=== PATIENT | male | born 1960 ===

== ENCOUNTER 2017-02-10 19:40 | Emergency (ER) | payer OTHER, BC ==
[2017-02-10 19:48] VITALS: RESP 18; TEMP 98.2
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
[2017-02-10 20:08] VITALS: O2SAT 98
[2017-02-10 21:14] VITALS: BP 145/79; PULSE 94
[2017-02-10] MEDS ORDERED: Amoxicillin-Clav 875-125 mg Tab PO STA (21:33)
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
== END 2017-02-10 22:14 | disposition home or self-care (01) ==
LOC: ED 19:40
DX: R51 Headache (principal); M54.2 Cervicalgia; M54.9 Dorsalgia, unspecified; V49.49XA Driver injured in collision with other motor vehicles in traffic accident, initial encounter; Y92.411 Interstate highway as the place of occurrence of the external cause; J32.9 Chronic sinusitis, unspecified; N28.1 Cyst of kidney, acquired
CPT/HCPCS: 70450; 72125; 72128; 96372; 99285; J1885

== ENCOUNTER 2018-05-03 08:30 | Day surgery (SDC) | payer BC, OTHER ==
[~2018-05-03 08:30] MED LIST: Lactated Ringer's 1,000 ML IV SCH
[2018-05-03] MEDS ORDERED: Propofol 10 mg/ml Inj (20 ML) ONE (09:44)
[2018-05-03 11:37] VITALS: BP 134/80; PULSE 63; RESP 16; TEMP 98.2; O2SAT 99
== END 2018-05-03 12:25 | disposition home or self-care (01) ==
LOC: ENDO 08:30
PROVIDERS: ATTEND Internal Medicine Gastroenterology
DX: D12.4 Benign neoplasm of descending colon (principal); K57.30 Diverticulosis of large intestine without perforation or abscess without bleeding; K64.8 Other hemorrhoids; K63.9 Disease of intestine, unspecified; I10 Essential (primary) hypertension
CPT/HCPCS: 45380; 45385; 88305; J2001; J2704; J7120

== ENCOUNTER 2018-10-21 22:43 | Emergency (ER) | payer BC, OTHER ==
[2018-10-21 23:04] VITALS: RESP 18; TEMP 97.9
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
[2018-10-21 23:50] VITALS: BP 132/84; PULSE 82; O2SAT 97
== END 2018-10-21 23:50 | disposition home or self-care (01) ==
LOC: ED 22:43
DX: H93.12 Tinnitus, left ear (principal)

== ENCOUNTER 2018-11-02 19:29 | Observation (INO) | payer BC, OTHER ==
[2018-11-02 19:46] VITALS: RESP 18
--- NOTE | 2018-11-02 20:19 | ED PDOC ---
Arrival/HPI - General Chief Complaint: Syncope Time Seen by Provider: 11/02/18 19:36 Historian: Patient - History of Present Illness Narrative History of Present Illness (Text): 11/02/18 19:50 Rick Meeks is a 58 year old male, whose past medical history includes hypertension, who presents to the Emergency department status post syncopal episode today. Patient states he had some stomach discomfort earlier this evening and was in the bathroom having a bowel movement when he began feeling increasingly dizzy. Patient stood up and subsequently lost conscious. Son states he found the patient on the floor of the bathroom unconscious. Patient does not recall the event, only remembers waking up on the floor. Patient denies any fever, chills, chest pain, shortness of breath, nausea, vomiting, diarrhea, urinary symptoms, back pain, neck pain, headache, or any other complaints. Symptom Onset: Gradual Symptom Course: Unchanged Activities at Onset: Light Context: Home Past Medical History - Provider Review Nursing Documentation Reviewed: Yes - Infectious Disease Hx of Infectious Diseases: None - Cardiac Hx Cardiac Disorders: Yes Hx Hypertension: Yes Hx Pacemaker: No - Neurological Hx Paralysis: No - Hematological/Oncological Hx Blood Transfusions: No - Psychiatric Hx Emotional Abuse: No Hx Physical Abuse: No Hx Substance Use: No - Anesthesia Hx Anesthesia Reactions: No Hx Malignant Hyperthermia: No - Suicidal Assessment Feels Threatened In Home Enviroment: No Family/Social History - Physician Review Nursing Documentation Reviewed: Yes Family/Social History: Unknown Family HX Smoking Status: Never Smoked Hx Alcohol Use: No Hx Substance Use: No Allergies/Home Meds Allergies/Adverse Reactions: Allergies oxycodone Allergy (Verified 10/21/18 23:01) RASH Penicillins Allergy (Verified 10/21/18 23:01) RASH Sulfa (Sulfonamide Antibiotics) Allergy (Verified 10/21/18 23:01) RASH morphine Adverse Reaction (Verified 10/21/18 23:01) SHORTNESS OF BREATH Home Medications: Home Meds Medication Instructions Recorded Confirmed Prednisone [Deltasone] 1 tab PO DAILY 11/02/18 11/02/18 Fluticasone Nasal [Flonase] 1 spray NS HS 11/03/18 11/03/18 Ofloxacin Otic 0.3% [Floxin 0.3% 5 drop BID 11/03/18 11/03/18 Otic Soln] amLODIPine [Norvasc] 10 mg PO DAILY 11/03/18 11/03/18 Review of Systems - Physician Review All systems were reviewed & negative as marked: Yes - Review of Systems Constitutional: Normal. absent: Fevers Eyes: Normal ENT: Normal Respiratory: Normal. absent: SOB, Cough Cardiovascular: Syncope. absent: Chest Pain Gastrointestinal: Abdominal Pain. absent: Diarrhea, Nausea, Vomiting Genitourinary Male: Normal. absent: Dysuria, Frequency, Hematuria, Urinary Output Changes Musculoskeletal: Normal. absent: Back Pain, Neck Pain Skin: Normal. absent: Rash Neurological: Dizziness. absent: Headache Endocrine: Normal Hemo/Lymphatic: Normal Psychiatric: Normal Physical Exam Vital Signs Reviewed: Yes Vital Signs Temp Pulse Resp BP Pulse Ox 11/02/18 19:46 98.0 F 72 18 108/80 98 Temperature: Afebrile Blood Pressure: Normal Pulse: Regular Respiratory Rate: Normal Appearance: Positive for: Well-Appearing, Non-Toxic, Comfortable Pain Distress: None Mental Status: Positive for: Alert and Oriented X 3 - Systems Exam Head: Present: Atraumatic, Normocephalic Pupils: Present: PERRL Extroacular Muscles: Present: EOMI Conjunctiva: Present: Normal Ears: Present: Erythema (Left TM injection). No: TM Bulging, Fluid, TM Perf Mouth: Present: Moist Mucous Membranes Pharnyx: Present: Normal. No: ERYTHEMA, EXUDATE, TONSILS ENLARGED, Peritonsilar Swelling, Uvular Deviation, Muffled/Hoarse Voice, Strider, Soft Palate/Uvular Edema Nose (External): Present: Atraumatic Nose (Internal): Present: Normal Inspection Neck: Present: Normal Range of Motion. No: Meningeal Signs, MIDLINE TENDERNESS, Paraspinal Tenderness Respiratory/Chest: Present: Clear to Auscultation, Good Air Exchange. No: Respiratory Distress, Accessory Muscle Use Cardiovascular: Present: Regular Rate and Rhythm, Normal S1, S2. No: Murmurs Abdomen: No: Tenderness, Distention, Peritoneal Signs Back: Present: Normal Inspection. No: CVA Tenderness, Midline Tenderness, Paraspinal Tenderness Upper Extremity: Present: Normal Inspection. No: Cyanosis, Edema Lower Extremity: Present: Normal Inspection. No: Edema Neurological: Present: GCS=15, CN II-XII Intact, Speech Normal Skin: Present: Warm, Dry, Normal Color. No: Rashes Psychiatric: Present: Alert, Oriented x 3, Normal Insight, Normal Concentration Medical Decision Making ED Course and Treatment: 11/02/18 19:50 Impression: 58 year old male presents s/p syncopal episode. Plan: -- CT Head w/o contrast -- EKG -- Chest X-ray -- Labs, cardiac enzymes, TSH, alcohol level, blood cultures -- Urinalysis, urine cultures, urine drug screen -- Reassess and disposition Prior Visits: Notes and results from previous visits were reviewed. Progress Notes: Reviewed EKG, NSR at 72 bpm. LVH. Inferior infarct. Non-specific ST/T wave changes. 11/02/18 22:03 Reviewed radiology, Chest X-ray shows no acute processes. CT Head: BRAIN No acute intraparenchymal hemorrhage. No mass lesion. No CT evidence for acute territorial infarct. No midline shift or extra-axial collections. VENTRICLES: No hydrocephalus. ORBITS: The orbits are unremarkable. SINUSES AND MASTOIDS: Left maxillary sinusitis with a large 3 x 2 cm retention cyst noted. The mastoid air cells are clear. BONES: No fracture. SOFT TISSUES: Unremarkable. IMPRESSION: Left maxillary sinusitis. No acute intracranial abnormality. Electronically signed on Nov 02, 2018 9:27:52 PM EST by: Michael Hilario M.D., RACHANA Certified By [facility] & [facility] Fellowship Trained MRI and CT Specialist 11/02/18 23:[address] Bojorquez, who is aware and agrees with plan. Accepts pt in to hospitalist service. residential case manager notified. - RAD Interpretation Radiology Orders: 11/02/18 19:56 HEAD W/O CONTRAST [CT] Stat 11/02/18 19:58 CHEST ONE VIEW [RAD] Stat Blending Machine Feeder: Radiologist - EKG Interpretation Interpreted by ED Physician: Yes Type: 12 lead EKG - Scribe Statement The provider has reviewed the documentation as recorded by the Karlos Tovar Provider Scribe Attestation: All medical record entries made by the Scribe were at my direction and personally dictated by me. I have reviewed the chart and agree that the record accurately reflects my personal performance of the history, physical exam, medical decision making, and the department course for this patient. I have also personally directed, reviewed, and agree with the discharge instructions and disposition. Disposition/Present on Arrival - Present on Arrival Any Indicators Present on Arrival: No History of DVT/PE: No History of Uncontrolled Diabetes: No Urinary Catheter: No History of Decub. Ulcer: No History Surgical Site Infection Following: None - Disposition Have Diagnosis and Disposition been Completed?: Yes Diagnosis: Syncope Disposition: HOSPITALIZED Disposition Time: 22:56 Condition: GOOD
[2018-11-02 20:29] LABS: ALB/GLOB RATIO 1.3 (1.1-1.8); ALBUMIN 4.2 g/dL (3.0-4.8); ALT/SGPT 23 U/L (7-56); AST/SGOT 27 U/L (17-59); BLOOD UREA NITROGEN 25 mg/dL (7-21); CALCIUM 9.1 mg/dL (8.4-10.5); GFR NON-AFRICAN AMERICAN > 60
[2018-11-02 20:33] LABS: INR 1.12; PARTIAL THROMBOPLASTIN TIME 27.2 Seconds (26.9-38.3); PROTHROMBIN TIME 12.4 SECONDS (9.4-12.5)
[2018-11-02 20:37] LABS: BASO # 0.01 K/mm3 (0.0-2.0); BASO % 0.1 % (0.0-3.0); EOS # 0.1 (0.0-0.7); EOS % 0.3 % (1.5-5.0); HEMOGLOBIN 15.5 g/dL (14.0-18.0); LYMPH # 2.8 (1.2-3.4); LYMPH % 14.6 % (22.0-35.0); MEAN CELL VOLUME 86.5 fl (80.0-105.0); MEAN CORPUSCULAR HGB CONC 33.5 g/dl (31.0-37.0); MEAN PLATELET VOLUME 9.8 fl (7.0-11.0); MONO # 1.9 (0.1-0.6); MONO % 9.8 % (1.0-6.0); RBC 5.34 10^6/uL (3.5-6.1); RED CELL DISTRIBUTION WIDTH 13.7 % (11.5-14.5)
[2018-11-02 20:40] LABS: URINE BILIRUBIN NEGATIVE (NEGATIVE); URINE BLOOD TRACE-INTACT (NEGATIVE); URINE GLUCOSE (UA) NEGATIVE (NEGATIVE); URINE LEUKOCYTE ESTERASE NEGATIVE Leu/uL (NEGATIVE); URINE PROTEIN 100 mg/dL (<30 mg/dL); URINE UROBILINOGEN 0.2 E.U./dL (<1 E.U./dL)
[2018-11-02 20:41] LABS: TROPONIN I < 0.01 ng/mL
[2018-11-02 20:42] LABS: URINE APPEARANCE CLEAR (CLEAR); URINE COLOR YELLOW (YELLOW)
[2018-11-02 20:56] LABS: BENZODIAZEPINES, UR NEGATIVE (NEGATIVE); PHENCYCLIDINE, UR NEGATIVE (NEGATIVE)
[2018-11-02 21:02] LABS: BARBITURATES, UR NEGATIVE (NEGATIVE); OPIATES, UR NEGATIVE (NEGATIVE)
[2018-11-02] MEDS: Sodium Chloride 0.9% 1,000 ML IV SCH (22:33)
[2018-11-02] MEDS ORDERED: Iohexol 350 MG/100 ML VIAL ONE (23:03)
[2018-11-03] MEDS ORDERED: Potassium Chloride 20 mEq ER Tab PO ONE (00:04)
[2018-11-03 00:56] VITALS: O2SAT 100
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
[2018-11-03] MEDS ORDERED: Pantoprazole 40 mg EC Tab PO SCH (06:00)
[2018-11-03 06:16] LABS: EOS # 0.1 (0.0-0.7); EOS % 0.7 % (1.5-5.0); HEMOGLOBIN 14.7 g/dL (14.0-18.0); LYMPH # 2.6 (1.2-3.4); LYMPH % 22.1 % (22.0-35.0); MEAN CELL VOLUME 87.2 fl (80.0-105.0); MEAN CORPUSCULAR HEMOGLOBIN 28.5 pg (25.0-35.0); MEAN CORPUSCULAR HGB CONC 32.7 g/dl (31.0-37.0); MONO # 0.9 (0.1-0.6); MONO % 7.5 % (1.0-6.0); RBC 5.15 10^6/uL (3.5-6.1); RED CELL DISTRIBUTION WIDTH 13.9 % (11.5-14.5); WHITE BLOOD COUNT 11.6 10^3/uL (4.5-11.0)
[2018-11-03 07:01] LABS: ALB/GLOB RATIO 1.3 (1.1-1.8); ALBUMIN 3.7 g/dL (3.0-4.8); ALT/SGPT 23 U/L (7-56); AST/SGOT 23 U/L (17-59); BLOOD UREA NITROGEN 18 mg/dL (7-21); CALCIUM 8.9 mg/dL (8.4-10.5); GFR NON-AFRICAN AMERICAN > 60
--- NOTE | 2018-11-03 08:26 | CT ---
Date of service: 11/02/2018 PROCEDURE: CT HEAD WITHOUT CONTRAST. HISTORY: syncope COMPARISON: 02/10/2017 TECHNIQUE: Axial computed tomography images were obtained through the head/brain without intravenous contrast. Radiation dose: Total exam DLP = 1124.57 mGy-cm. This CT exam was performed using one or more of the following dose reduction techniques: Automated exposure control, adjustment of the mA and/or kV according to patient size, and/or use of iterative reconstruction technique. FINDINGS: HEMORRHAGE: No intracranial hemorrhage. BRAIN: No mass effect or edema. No atrophy or chronic microvascular ischemic changes. VENTRICLES: Unremarkable. No hydrocephalus. CALVARIUM: Unremarkable. PARANASAL SINUSES: Chronic opacification of the left maxillary sinus MASTOID AIR CELLS: Unremarkable as visualized. No inflammatory changes. OTHER FINDINGS: The report concurs with the preliminary [facility] report IMPRESSION: No acute intracranial findings
[2018-11-03] MEDS ORDERED: Potassium Chloride 40 mEq/30 ml LIQ UD PO ONE (09:04)
--- NOTE | 2018-11-03 09:15 | RAD ---
Date of service: 11/02/2018 HISTORY: syncope COMPARISON: Chest radiographs 01/22/2018. FINDINGS: LUNGS: No active pulmonary disease. PLEURA: No significant pleural effusion identified, no pneumothorax apparent. CARDIOVASCULAR: No aortic atherosclerotic calcification present. Normal cardiac size. No pulmonary vascular congestion. OSSEOUS STRUCTURES: No significant abnormalities. VISUALIZED UPPER ABDOMEN: Normal. OTHER FINDINGS: None. IMPRESSION: No interval acute cardiopulmonary disease appreciated.
[2018-11-03] MEDS ORDERED: NEBIVOLOL PO SCH (10:00)
[2018-11-03] MEDS ORDERED: OFLOXACIN 0.3% AS SCH ×2 (10:00→16:04)
--- NOTE | 2018-11-03 10:00 | CT ---
Date of service: 11/03/2018 PROCEDURE: CT Abdomen and Pelvis with contrast HISTORY: abd pain COMPARISON: None. TECHNIQUE: Contrast dose: 100 cc of Omni 350 Radiation dose: Total exam DLP = 1034.92 mGy-cm. This CT exam was performed using one or more of the following dose reduction techniques: Automated exposure control, adjustment of the mA and/or kV according to patient size, and/or use of iterative reconstruction technique. FINDINGS: LOWER THORAX: Unremarkable. LIVER: Unremarkable. No gross lesion or ductal dilatation. GALLBLADDER AND BILE DUCTS: Unremarkable. PANCREAS: Unremarkable. No gross lesion or ductal dilatation. SPLEEN: Unremarkable. ADRENALS: Unremarkable. No mass. KIDNEYS AND URETERS: Unremarkable. No hydronephrosis. No solid mass. 4 cm simple cyst lower pole right kidney. Small 10 mm dense cyst posterior right kidney. VASCULATURE: Unremarkable. No aortic aneurysm. No aortic atherosclerotic calcification or mural plaque present. BOWEL: Unremarkable. No obstruction. No gross mural thickening. APPENDIX: Normal appendix. PERITONEUM: Unremarkable. No free fluid. No free air. LYMPH NODES: Unremarkable. No enlarged lymph nodes. BLADDER: Unremarkable. REPRODUCTIVE: Unremarkable. BONES: No acute fracture. OTHER FINDINGS: The report concurs with the preliminary [facility] report IMPRESSION: No acute intra-abdominal findings
--- NOTE | 2018-11-03 10:03 | CARD ---
APPROVED REPORT Date of service: 11/02/2018 EKG Measurement Heart [id number] <Conclusion> Normal sinus rhythm Minimal voltage criteria for LVH, may be normal variant Inferior infarct, age undetermined Abnormal ECG
[2018-11-03] MEDS: Sodium Chloride 0.9% 1,000 ML IV SCH (11:00)
--- NOTE | 2018-11-03 11:18 | US ---
PROCEDURE: Bilateral carotid artery duplex ultrasound HISTORY: Carotid stenosis syncope PHYSICIAN(S): Harry France MD. TECHNIQUE: Duplex sonography and color-flow Doppler were used to evaluate the carotid bifurcations and limited segments of the vertebral arteries bilaterally. FINDINGS: There is mild smooth hypoechoic plaque noted at the carotid bifurcations bilaterally. The peak systolic velocity in the proximal right internal carotid artery is 78 cm/sec. This corresponds to a 20 to 39% proximal right ICA stenosis. Normal systolic velocities are noted in the proximal right external carotid artery. There is antegrade flow in the right vertebral artery. The peak systolic velocity in the proximal left internal carotid artery is 84 cm/sec. This corresponds to a 20 to 39% proximal left ICA stenosis. Normal systolic velocities are noted in the proximal left external carotid artery. There is antegrade flow in the left vertebral artery. IMPRESSION: 1. Bilateral 20-39% proximal ICA stenoses. 2. Antegrade flow in both vertebral arteries.
--- NOTE | 2018-11-03 11:21 | CP.PCM.CON ---
History of Present Illness - History of Present Illness History of Present Illness: Neurology Consultation Note: Consult requested by Dr. Estefany Valle Mr. Meeks is a 58-year-old man with a past medical history of HTN, who states that yesterday, he had abdominal pain, followed by a bowel movement and subsequent syncope. He was not confused when he woke up, there were no abnormal movements noted by his , and he did not have any tongue biting. EMS was called and he went into the vehicle and had another bowel movement with LOC. Now, he is at baseline and has no complaints. Review of Systems - Constitutional Constitutional: As Per HPI - EENT Eyes: absent: As Per HPI, Blind Spots, Blurred Vision, Change in Vision, Decreased Night Vision, Diplopia, Discharge, Dry Eye, Exophthalmos, Floaters, Irritation, Itchy Eyes, Loss of Peripheral Vision, Pain, Photophobia, Requires Corrective Lenses, Sees Flashes, Spots in Vision, Tunnel Vision, Other Visual Disturbances, Loss of Vision, Other Ears: absent: As Per HPI, Decreased Hearing, Ear Discharge, Ear Pain, Tinnitus, Abnormal Hearing, Disequilibrium, Dizziness, Other Nose/Mouth/Throat: absent: As Per HPI, Epistaxis, Nasal Congestion, Nasal Discharge, Nasal Obstruction, Nasal Trauma, Nose Pain, Post Nasal Drip, Sinus Pain, Sinus Pressure, Bleeding Gums, Change in Voice, Dental Pain, Dry Mouth, Dysphagia, Halitosis, Hoarsness, Lip Swelling, Mouth Lesions, Mouth Pain, Odynophagia, Sore Throat, Throat Swelling, Tongue Swelling, Facial Pain, Neck Pain, Neck Mass, Other - Cardiovascular Cardiovascular: absent: As Per HPI, Acrocyanosis, Chest Pain, Chest Pain at Rest, Chest Pain with Activity, Claudication, Diaphoresis, Dyspnea, Dyspnea on Exertion, Edema, Irregular Heart Rhythm, Pain Radiating to Arm/Neck/Jaw, Leg Edema, Leg Ulcers, Lightheadedness, Orthopnea, Palpitations, Paroxysmal Nocturnal Dyspnea, Pedal Edema, Radiating Pain, Rapid Heart Rate, Slow Heart Rate, Syncope, Other - Respiratory Respiratory: absent: As Per HPI, Cough, Dyspnea, Hemoptysis, Dyspnea on Exertion, Wheezing, Snoring, Stridor, Pain on Inspiration, Chest Congestion, Excessive Mucous Production, Change in Mucous Color, Pain with Coughing, Other - Gastrointestinal Gastrointestinal: As Per HPI - Genitourinary Genitourinary: absent: As Per HPI, Change in Urinary Stream, Difficulty Urinating, Dysuria, Flank Pain, Hematuria, Pyuria, Nocturia, Urinary Incontine nce, Urinary Frequency, Urinary Hesitance, Urinary Urgency, Voiding Freq/Small Amts, Freq UTI, Hx Renal/Bladder Calculi, Hx /Renal Surgery, Bladder Distension, Other - Musculoskeletal Musculoskeletal: absent: As Per HPI, Abnormal Gait, Arthralgias, Atrophy, Back Pain, Deformity, Joint Swelling, Limited Range of Motion, Loss of Height, Muscle Cramps, Muscle Weakness, Myalgias, Neck Pain, Numbness, Radiating Pain into Limb, Stiffness, Tingling, Other - Integumentary Integumentary: absent: As Per HPI, Acne, Alopecia, Bleeding Lesions, Change in Hair, Change in Nails, Change in Pigmentation, Changing Lesions, Dry Skin, Erythema, Furuncle, Hirsutism, Lesions, New Lesions, Non-Healing Lesions, Photosensitivity, Pruritus, Rash, Skin Pain, Skin Ulcer, Sores, Striae, Swelling, Unusual Bruising, Wounds, Jaundice, Other - Neurological Neurological: As Per HPI - Psychiatric Psychiatric: absent: As Per HPI, Abnormal Sleep Pattern, Anhedonia, Anxiety, Auditory Hallucinations, Behavioral Changes, Change in Appetite, Change in Libido, Confusion, Depression, Difficulty Concentrating, Hallucinations, Homicidal Ideation, Hopelessness, Irritability, Memory Loss, Mood Swings, Panic Attacks, Paranoia, Suicidal Ideation, Visual Hallucinations, Tactile Hallucinations, Other - Endocrine Endocrine: absent: As Per HPI, Change in Body Appearance, Change in Libido, Cold Intolorance, Deepening of Voice, Excessive Sweating, Fatigue, Flushing, Heat Intolorance, Increase in Ring/Shoe/Hat Size, Palpitations, Polydipsia, Polyphagia, Polyuria, Other - Hematologic/Lymphatic Hematologic: absent: As Per HPI, Easy Bleeding, Easy Bruising, Lymphadenopathy, Other Past Patient History - Infectious Disease Hx of Infectious Diseases: None - Past Social History Smoking Status: Never Smoked - CARDIAC Hx Cardiac Disorders: Yes Hx Hypertension: Yes Hx Pacemaker: No - PULMONARY Hx Respiratory Disorders: Yes Hx Sleep Apnea: Yes - NEUROLOGICAL Hx Paralysis: No - HEENT Hx Blind: No - RENAL Hx Chronic Kidney Disease: No - ENDOCRINE/METABOLIC Hx Endocrine Disorders: No - HEMATOLOGICAL/ONCOLOGICAL Hx Blood Transfusions: No - INTEGUMENTARY Hx Dermatological Problems: No - MUSCULOSKELETAL/RHEUMATOLOGICAL Hx Musculoskeletal Disorders: No Hx Falls: Yes - GASTROINTESTINAL Hx Gastrointestinal Disorders: No - GENITOURINARY/GYNECOLOGICAL Hx Genitourinary Disorders: No - PSYCHIATRIC Hx Emotional Abuse: No Hx Physical Abuse: No Hx Substance Use: No - SURGICAL HISTORY Hx Surgeries: Yes - ANESTHESIA Hx Anesthesia Reactions: No Hx Malignant Hyperthermia: No Meds Allergies/Adverse Reactions: Allergies Allergy/AdvReac Type Severity Reaction Status Date / Time oxycodone Allergy RASH Verified 10/21/18 23:01 Penicillins Allergy RASH Verified 10/21/18 23:01 Sulfa (Sulfonamide Allergy RASH Verified 10/21/18 23:01 Antibiotics) morphine AdvReac SHORTNESS Verified 10/21/18 23:01 OF BREATH - Medications Medications: Current Medications Heparin Sodium (Porcine) (Heparin) 5,000 units SC Q8 YINKA; Protocol Last Admin: 11/03/18 07:45 Dose: 5,000 units Sodium Chloride (Sodium Chloride 0.9%) 1,000 mls @ 80 mls/hr IV .[id number] [facility] Last Admin: 11/02/18 22:33 Dose: 80 mls/hr Nebivolol [Bystolic] (1 Tab (Home Med)) 1 tab PO DAILY [facility] Ofloxacin Otic 0.3% [Floxin 0.3% Otic Soln] 5 Drop (Home Med) 5 drop BID [facility] Pantoprazole Sodium (Protonix Ec Tab) 40 mg PO 0600 [facility] Last Admin: 11/03/18 07:45 Dose: 40 mg Potassium Chloride (Klor-Con 10) 20 meq PO 0800 [facility] Physical Exam - Constitutional Appears: Well - Head Exam Head Exam: ATRAUMATIC, NORMAL INSPECTION, NORMOCEPHALIC - Eye Exam Eye Exam: EOMI, Normal appearance, PERRL Pupil Exam: NORMAL ACCOMODATION, PERRL - ENT Exam ENT Exam: Mucous Membranes Moist, Normal Exam - Neck Exam Neck exam: Positive for: Normal Inspection - Respiratory Exam Respiratory Exam: Clear to Auscultation Bilateral, NORMAL BREATHING PATTERN - Cardiovascular Exam Cardiovascular Exam: REGULAR RHYTHM, +S1, +S2 - GI/Abdominal Exam GI & Abdominal Exam: Normal Bowel Sounds, Soft. absent: Tenderness - Extremities Exam Extremities exam: Positive for: normal inspection - Back Exam Back exam: NORMAL INSPECTION - Neurological Exam Neurological exam: Alert, CN II-XII Intact, Normal Gait, Oriented x3, Reflexes Normal - Psychiatric Exam Psychiatric exam: Normal Affect, Normal Mood - Skin Skin Exam: Dry, Intact, Normal Color, Warm Results - Vital Signs Recent Vital Signs: Last Vital Signs Temp 98.5 F 11/03/18 06:00 Pulse 62 11/03/18 06:00 Resp 18 11/03/18 01:14 BP 130/70 11/03/18 06:00 Pulse Ox 100 11/03/18 00:00 - Labs Result Diagrams: 11/03/18 05:55 11/03/18 05:55 Labs: Laboratory Results - last 24 hr 11/02/18 11/02/18 11/02/18 19:55 19:55 19:55 WBC 19.0 H RBC 5.34 Hgb 15.5 Hct 46.2 MCV 86.5 MCH 29.0 MCHC 33.5 RDW 13.7 Plt Count 275 MPV 9.8 Neut % (Auto) 75.2 H Lymph % (Auto) 14.6 L [place] % (Auto) 9.8 H Eos % (Auto) 0.3 L Baso % (Auto) 0.1 Lymph # (Auto) 2.8 [place] # (Auto) 1.9 H Eos # (Auto) 0.1 Baso # (Auto) 0.01 Absolute Neuts (auto) 14.28 H PT 12.4 INR 1.12 APTT 27.2 Sodium 139 Potassium 3.5 L Chloride 103 Carbon Dioxide 27 Anion Gap 13 BUN 25 H Creatinine 0.7 L Est GFR ( Amer) > 60 Est GFR (Non-Af Amer) > 60 Random Glucose 122 H Calcium 9.1 Phosphorus 4.0 Magnesium 2.2 Total Bilirubin 0.6 AST 27 ALT 23 Alkaline Phosphatase 91 Lactate Dehydrogenase 476 Total Creatine Kinase 58 Troponin I < 0.01 Total Protein 7.4 Albumin 4.2 Globulin 3.2 Albumin/Globulin Ratio 1.3 TSH 3rd Generation Urine Color Urine Appearance Urine pH Ur Specific [place] Urine Protein Urine Glucose (UA) Urine Ketones Urine Blood Urine Nitrate Urine Bilirubin Urine Urobilinogen Ur Leukocyte Esterase Urine RBC Urine WBC Ur Epithelial Cells Urine Opiates Screen Urine Methadone Screen Acetaminophen Ur Barbiturates Screen Ur Phencyclidine Scrn Ur Amphetamines Screen U Benzodiazepines Scrn U Oth Cocaine Metabols U Cannabinoids Screen Alcohol, Quantitative Influenza Typ A,B (EIA) 11/02/18 11/02/18 11/02/18 19:55 19:55 20:26 WBC RBC Hgb Hct MCV MCH MCHC RDW Plt Count MPV Neut % (Auto) Lymph % (Auto) [place] % (Auto) Eos % (Auto) Baso % (Auto) Lymph # (Auto) [place] # (Auto) Eos # (Auto) Baso # (Auto) Absolute Neuts (auto) PT INR APTT Sodium Potassium Chloride Carbon Dioxide Anion Gap BUN Creatinine Est GFR ( Amer) Est GFR (Non-Af Amer) Random Glucose Calcium Phosphorus Magnesium Total Bilirubin AST ALT Alkaline Phosphatase Lactate Dehydrogenase Total Creatine Kinase Troponin I Total Protein Albumin Globulin Albumin/Globulin Ratio TSH 3rd Generation 1.84 Urine Color Yellow Urine Appearance Clear Urine pH 6.0 Ur Specific [place] >= 1.030 Urine Protein 100 H Urine Glucose (UA) Negative Urine Ketones Negative Urine Blood Trace-intact H Urine Nitrate Negative Urine Bilirubin Negative Urine Urobilinogen 0.2 Ur Leukocyte Esterase Negative Urine RBC 5 - 10 H Urine WBC 2 - 5 Ur Epithelial Cells 6 - 8 H Urine Opiates Screen Urine Methadone Screen Acetaminophen < 10.0 L Ur Barbiturates Screen Ur Phencyclidine Scrn Ur Amphetamines Screen U Benzodiazepines Scrn U Oth Cocaine Metabols U Cannabinoids Screen Alcohol, Quantitative < 10 Influenza Typ A,B (EIA) 11/02/18 11/02/18 11/03/18 20:26 22:25 02:10 WBC RBC Hgb Hct MCV MCH MCHC RDW Plt Count MPV Neut % (Auto) Lymph % (Auto) [place] % (Auto) Eos % (Auto) Baso % (Auto) Lymph # (Auto) [place] # (Auto) Eos # (Auto) Baso # (Auto) Absolute Neuts (auto) PT INR APTT Sodium Potassium Chloride Carbon Dioxide Anion Gap BUN Creatinine Est GFR ( Amer) Est GFR (Non-Af Amer) Random Glucose Calcium Phosphorus Magnesium Total Bilirubin AST ALT Alkaline Phosphatase Lactate Dehydrogenase Total Creatine Kinase Troponin I < 0.01 Total Protein Albumin Globulin Albumin/Globulin Ratio TSH 3rd Generation Urine Color Urine Appearance Urine pH Ur Specific [place] Urine Protein Urine Glucose (UA) Urine Ketones Urine Blood Urine Nitrate Urine Bilirubin Urine Urobilinogen Ur Leukocyte Esterase Urine RBC Urine WBC Ur Epithelial Cells Urine Opiates Screen Negative Urine Methadone Screen Negative Acetaminophen Ur Barbiturates Screen Negative Ur Phencyclidine Scrn Negative Ur Amphetamines Screen Negative U Benzodiazepines Scrn Negative U Oth Cocaine Metabols Negative U Cannabinoids Screen Negative Alcohol, Quantitative Influenza Typ A,B (EIA) Negative for flu a/b 11/03/18 11/03/18 11/03/18 05:55 05:55 05:55 WBC 11.6 H D RBC 5.15 Hgb 14.7 Hct 44.9 MCV 87.2 MCH 28.5 MCHC 32.7 RDW 13.9 Plt Count 266 MPV 10.0 Neut % (Auto) 69.7 H Lymph % (Auto) 22.1 [place] % (Auto) 7.5 H Eos % (Auto) 0.7 L Baso % (Auto) 0.0 Lymph # (Auto) 2.6 [place] # (Auto) 0.9 H Eos # (Auto) 0.1 Baso # (Auto) 0.00 Absolute Neuts (auto) 8.10 H PT INR APTT Sodium 138 Potassium 3.4 L Chloride 104 Carbon Dioxide 31 Anion Gap 6 L BUN 18 Creatinine 0.6 L Est GFR ( Amer) > 60 Est GFR (Non-Af Amer) > 60 Random Glucose 112 H Calcium 8.9 Phosphorus 2.8 Magnesium 2.3 H Total Bilirubin 0.8 AST 23 ALT 23 Alkaline Phosphatase 73 Lactate Dehydrogenase Total Creatine Kinase Troponin I < 0.01 Total Protein 6.5 Albumin 3.7 Globulin 2.8 Albumin/Globulin Ratio 1.3 TSH 3rd Generation Urine Color Urine Appearance Urine pH Ur Specific [place] Urine Protein Urine Glucose (UA) Urine Ketones Urine Blood Urine Nitrate Urine Bilirubin Urine Urobilinogen Ur Leukocyte Esterase Urine RBC Urine WBC Ur Epithelial Cells Urine Opiates Screen Urine Methadone Screen Acetaminophen Ur Barbiturates Screen Ur Phencyclidine Scrn Ur Amphetamines Screen U Benzodiazepines Scrn U Oth Cocaine Metabols U Cannabinoids Screen Alcohol, Quantitative Influenza Typ A,B (EIA) Assessment & Plan (1) Syncope and collapse Assessment and Plan: Likely vasovagal, but there is concern that these events may be drop attacks or seizures. Will obtain EEG for further evaluation. Exam is non-focal, no nystagmus or posterior circulation symptoms. Continue cardiac work-up. Thank you for this consultation. Status: Acute
[2018-11-03 12:19] VITALS: BP 150/92
[2018-11-03 12:30] VITALS: TEMP 98
--- NOTE | 2018-11-03 13:57 | CARD ---
APPROVED REPORT Date of service: 11/03/2018 EXAM: Two-dimensional and M-mode echocardiogram with Doppler and color Doppler. INDICATION Syncope 2D DIMENSIONS Left Atrium (2D)3.6 (1.6-4.0cm)IVSd1.2 (0.7-1.1cm) LVDd4.6 (3.9-5.9cm)PWd1.4 (0.7-1.1cm) LVDs3.3 (2.5-4.0cm)FS (%) 27.7 % LVEF (%)53.7 (>50%) M-Mode DIMENSIONS Aortic Root3.10 (2.2-3.7cm)Aortic Cusp Exc.1.70 (1.5-2.0cm) Aortic Valve AoV Peak Dwhmnofb799.0cm/[place]ida Peak GR.5mmHg Mitral Valve MV E Oofdcaim06.9cm/sMV A Esfpbdsg49.0cm/sE/A ratio1.1 TDI E/Lateral E'0.0E/Medial E'0.0 Tricuspid Valve TR Peak [id number]/sRAP [id number] Peak Gr.11mmHg [id number] LEFT VENTRICLE The left ventricle is normal size. There is mild concentric left ventricular hypertrophy. The left ventricular function is normal. The left ventricular ejection fraction is within the normal range.Ej.Fr: 55%. RIGHT VENTRICLE The right ventricle is normal size. The right ventricular systolic function is normal. ATRIA The left atrium size is normal. The right atrium size is normal. AORTIC VALVE The aortic valve is normal in structure. MITRAL VALVE The mitral valve is normal in structure. TRICUSPID VALVE The tricuspid valve is normal in structure. There is trace tricuspid regurgitation. PERICARDIAL EFFUSION There is no pericardial effusion. <Conclusion> The left ventricle is normal size. There is mild concentric left ventricular hypertrophy. The left ventricular function is normal. The left ventricular ejection fraction is within the normal range.Ej.Fr: 55%. The right ventricle is normal size. The right ventricular systolic function is normal. The left atrium size is normal. The right atrium size is normal. The aortic valve is normal in structure. The mitral valve is normal in structure. The tricuspid valve is normal in structure. There is trace tricuspid regurgitation. There is no pericardial effusion.
[2018-11-03 15:11] VITALS: PULSE 74
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
--- NOTE | 2018-11-03 17:25 | CON ---
DATE: 11/03/2018 CARDIOLOGY FOLLOWUP HISTORY: The patient is a 58-year-old male, who presents with syncopal episode after a difficult bowel movement. PAST MEDICAL HISTORY: The patient's past medical history includes hypertension, borderline diabetes mellitus. No seizure disorder in the past. No previous cardiac history in the past. Denies chest pain. Denies shortness of breath. SOCIAL HISTORY: The patient does not smoke. REVIEW OF SYSTEMS: Fourteen-point review of systems is reviewed in detail. No additional cardiac symptoms are noted. PHYSICAL EXAMINATION: VITAL SIGNS: Blood pressure 150/92, the heart rate is in the 80s. NECK: Negative JVD. LUNGS: Without rales. CARDIAC: Heart rate S1, S2. EXTREMITIES: Without edema. EKG shows normal sinus rhythm with no acute changes. LABORATORY DATA: Troponins are negative x3. Hemoglobin is 14.7. Echocardiogram reveals normal LV function with no LV outflow obstruction. Neuro workup is pending. IMPRESSION: 1. Syncopal episode, very likely vasovagal in nature. 2. No identifiable cardiac cause of the syncope. 3. Hypertension. 4. Borderline diabetes mellitus. 5. Overweight. PLAN: Given these findings, no further cardiac workup is necessary as an inpatient. Given his risk factors, I have talked to the patient and about doing a stress test. They agreed. We will obtain a stress test next week as an outpatient. Harry Tovar MD
--- NOTE | 2018-11-03 23:28 | CON ---
DATE: 11/03/2018 HISTORY OF PRESENT ILLNESS: Rick is a 58-year-old male with past medical history of hypertension, who stated that he developed abdominal pain followed by bowel movement, subsequent syncope, which he was admitted to [facility] for further evaluation. We were specifically called for consultation to evaluate the patient's history of tinnitus involving the left ear which has persisted for 2 months since he returned from an airline trip to [place]. The patient stated that after the trip, he experienced some plugging in the year as well as tinnitus and was treated with various courses of antibiotics and steroids without any relief. We apparently performed an audio and tympanogram in our office after this incident had occurred, which failed to reveal any definitive fluid in the ear. REVIEW OF SYSTEMS: As per history of present illness. He denied any specific ear discharge or dizziness. PAST SOCIAL HISTORY: Unremarkable. PAST MEDICAL HISTORY: Cardiac: He had a history of cardiac disorders as well as some pulmonary disorders as well. The patient does suffer from anxiety disorder which he states when his stress gets worse, the noise on the left side gets elevated. Remaining of his past medical history was unremarkable. ALLERGIES: THE PATIENT WAS ALLERGIC TO OXYCODONE, PENICILLIN, SULFUR, AND MORPHINE. PHYSICAL EXAMINATION: HEENT: Head examination is atraumatic, normal inspection, normocephalic. Extraocular muscles are intact bilaterally. Pupils are equal and reactive to light and accommodation. Ear, nose, and throat examination reveals the external auditory canals and tympanic membranes to be normal in appearance. Intranasal reveals evidence of septal deviation. Oropharyngeal exam reveals evidence for a prior uvulopalatopharyngoplasty. NECK: Normal on examination without any gross adenopathy noted. RESPIRATORY: Normal breathing pattern. CARDIOVASCULAR: Regular rhythm. GASTROINTESTINAL/ABDOMEN: Normal bowel sounds. Soft, nontender. NEUROLOGIC: The patient is alert and oriented x3, no acute distress. Cranial nerves II-XII grossly intact. Normal gait. Reflexes are normal. PSYCHIATRIC: The patient did experience some agitation and hyperexcitability upon completion of relatively benign or normal ENT examination. The patient also had evidence on a CT scan of left chronic maxillary sinusitis, so with a 0-degree endoscope, we examined both nasal cavities, first by examining the middle and inferior turbinates which were noted to be normal bilaterally, left middle meatus was noted to be without polyps or purulence but did show evidence of an obstructed ostiomeatal complex. Sphenoethmoidal recess was unremarkable. The septum was deviated to the right hand side. On physical examination of the right nasal cavity, similarly there was no evidence of purulence or polyps in the middle meatus, the ostiomeatal complex was noted to be obstructed, there was some turbinate hypertrophy noted involving the middle and inferior turbinates bilaterally. IMPRESSION: This patient is suffering from tinnitus involving the left ear, possibly some component of eustachian tube dysfunction. The patient also has evidence of chronic maxillary sinusitis involving the left maxillary sinus. Also anxiety disorder. Probable vasovagal response to syncope related to his bowel movements. PLAN: To have the patient follow up as an outpatient in the office. We instructed that the patient take lipo-flavonoids one tablet p.o. t.i.d. as well as take his prescribed Xanax for anxiety should it arise. The patient was instructed that there will be alternatives which can be offered to him for treatment of the tinnitus as an outpatient; however, the course of the tinnitus is often unpredictable in its nature. The patient will be following up with us in one-week time span. Omi Sears DO
[2018-11-04] MEDS ORDERED: Potassium Chloride 10 mEq ER Tab PO SCH (08:00)
--- NOTE | 2018-11-04 09:48 | PCM.EEG ---
Electroencephalogram Report - Electroencephalogram Report Procedure Date: 11/03/18 Medication: Amlodipine, Heparin, Pantoprazole Interpretation: Technical Information: This was a 16 -channel EEG, 1-channel EKG routine EEG performed using an [employer] machine. Electrodes were applied using the 10/20 international placement system. Start; 13;35 End; 14;25 Total 50 min. Clinical Information: syncope During resting wakefulness there was a symmetric posterior dominant rhythm at 8.5-9.5 Hz, 30-50 uV, which was reactive to eye opening and closing. Drowsiness (13;50) was associated with fragmentation of the posterior dominant rhythm and with slow roving eye movements. Light sleep (14;13) was recorded and was characterized by central vertex waves, sleep spindles, and bilateral theta slowing. Hyperventilation was performed there were no changes on the record. Photic stimulation was performed and there were no changes on the record. Focal abnormality; none ECG was associated with a normal sinus rhythm. Impression: This is a normal awake drowsy and sleep electroencephalogram.
== END 2018-11-03 18:53 | disposition home or self-care (01) ==
LOC: ED 19:58 → ERH 22:56 → 2RNO 11-03 00:28
PROVIDERS: ADMIT Hospitalist; ATTEND Hospitalist
DX: R55 Syncope and collapse (principal); G47.33 Obstructive sleep apnea (adult) (pediatric); D72.829 Elevated white blood cell count, unspecified; I10 Essential (primary) hypertension; R73.03 Prediabetes; E66.3 Overweight; J32.0 Chronic maxillary sinusitis; F41.9 Anxiety disorder, unspecified; H93.12 Tinnitus, left ear
CPT/HCPCS: 36415; 70450; 71045; 74177; 80053; 81001; 82550; 83615; 83735; 84100; 84443; 84484; 85025; 85610; 85730; 87040; 87804; 93005; 93306; 93880; 96372; 97116; 97161; 99285; G0378; G0480; G8978; G8979; G8980; J1644; J3480; J7030; Q9967

== ENCOUNTER 2018-11-15 06:56 | Outpatient (CLI) | payer BC, OTHER | END 2018-11-15 06:57 | disposition home or self-care (01) | LOC: CARDIO 06:56 | DX: I25.10 Atherosclerotic heart disease of native coronary artery without angina pectoris (principal) ==